=== PATIENT | male | born 1985 | race Caucasian/White ===

== ENCOUNTER 2017-03-21 01:45 | Emergency (ER) | payer SELFPAY ==
[~2017-03-21] VITALS: Ht 182.9 cm; Wt 97.0 kg
[2017-03-21 01:51] VITALS: Ht 182.9 cm; Wt 97.0 kg
== END 2017-03-21 02:37 | disposition left against medical advice (07) ==
LOC: FTE 01:45
DX: Z53.21 Procedure and treatment not carried out due to patient leaving prior to being seen by health care provider (principal)